=== PATIENT | female | born 2000 | race Caucasian/White ===

== ENCOUNTER 2021-06-08 14:40 | Emergency (ER) | payer BC ==
[~2021-06-08] VITALS: Ht 160 cm; Wt 68.2 kg
[2021-06-08] MEDS ORDERED: ZOFRAN ODT4 MG PO (16:47)
[2021-06-08 16:56] VITALS: BP 109/65; PULSE 91; TEMP 98.5
== END 2021-06-08 16:56 | disposition home or self-care (01) ==
LOC: COL.ER 14:40
DX: U07.1 COVID-19 (principal)
CPT/HCPCS: J2405; J7030

== ENCOUNTER 2021-06-25 11:01 | Emergency (ER) | payer OTHER ==
[~2021-06-25] VITALS: Ht 160 cm; Wt 68.2 kg
[~2021-06-25 11:01] MED LIST: ZOFRAN ODT4 MG PO
[2021-06-25 11:28] VITALS: BP 122/58; TEMP 98.1
[2021-06-25 12:48] VITALS: PULSE 93
== END 2021-06-25 12:48 | disposition home or self-care (01) ==
LOC: COL.ER 11:01
DX: S61.217A Laceration without foreign body of left little finger without damage to nail, initial encounter (principal); Z91.040 Latex allergy status; Y92.59 Other trade areas as the place of occurrence of the external cause; Y99.0 Civilian activity done for income or pay; W26.0XXA Contact with knife, initial encounter

== ENCOUNTER 2021-11-11 20:22 | Emergency (ER) | payer SELFPAY ==
[~2021-11-11] VITALS: Ht 160 cm; Wt 68.2 kg
[2021-11-11 20:25] VITALS: TEMP 98.3
[2021-11-11 22:07] VITALS: BP 113/71; PULSE 69
== END 2021-11-11 22:07 | disposition home or self-care (01) ==
LOC: COL.ER 20:22
DX: T78.40XA Allergy, unspecified, initial encounter (principal); Z91.040 Latex allergy status
CPT/HCPCS: J7512

== ENCOUNTER 2021-12-27 23:47 | Emergency (ER) | payer SELFPAY ==
[~2021-12-27] VITALS: Ht 157.5 cm; Wt 68.2 kg
[2021-12-27 23:51] VITALS: TEMP 98.1
[2021-12-28 00:52] LABS: BASO # 0.1 K/mm3 (0.0-0.2); BASO % 0.9 % (0.0-2.0); EOS # 1.3 K/mm3 (0.0-0.7); GRAN # 3.3 K/mm3 (1.4-6.5); GRAN % 43.8 % (42.2-75.2); HEMATOCRIT 39.5 % (35.0-45.0); HEMOGLOBIN 13.3 g/dl (12.0-15.0); LYMPH # 1.9 K/mm3 (1.2-3.4); LYMPH % 25.9 % (20.0-51.0); MEAN CELL VOLUME 87 fl (80.0-95.0); MEAN CORPUSCULAR HEMOGLOBIN 29 pg (26-32); MEAN CORPUSCULAR HGB CONC 34 g/dl (33.0-37.0); MEAN PLATELET VOLUME 11.8 fl (7.4-10.4); MONO # 0.9 K/mm3 (0.1-0.6); MONO % 12.1 % (1.7-9.3); PLATELET COUNT 286 K/mm3 (130-400); RED BLOOD COUNT 4.52 M/mm3 (4.10-5.30); REDCELL DISTRIBUTION WIDTH-CV 13.2 % (11.5-14.5)
[2021-12-28 01:13] LABS: ALBUMIN 3.9 gm/dL (3.5-5.0); BILIRUBIN,TOTAL 0.3 mg/dL (0.2-1.2); CALCIUM 8.9 mg/dL (8.4-10.2); CREATININE, serum 0.7 mg/dL (0.57-1.11); POTASSIUM 3.9 mmol/L (3.5-4.5); TOTAL PROTEIN 7.8 gm/dL (6.2-8.1)
[2021-12-28] MEDS ORDERED: PROAIR HFA0.09 MG/AC IH (01:48)
[2021-12-28] MEDS ORDERED: PREDNISONE20 MG PO (01:48)
[2021-12-28] MEDS ORDERED: NORCO 325 MG-51 TAB PO (01:49)
[2021-12-28 01:58] VITALS: BP 110/73; PULSE 97
== END 2021-12-28 01:58 | disposition home or self-care (01) ==
LOC: COL.ER 23:47
PROVIDERS: Personal Emergency Response Attendant
DX: J20.9 Acute bronchitis, unspecified (principal); M54.9 Dorsalgia, unspecified; Z86.16 Personal history of COVID-19; Z91.040 Latex allergy status
CPT/HCPCS: J2270; J2405; J2930; J7030

== ENCOUNTER → 2022-04-06 | Outpatient (CLI) | payer OTHER ==
[~2022-04-06] MED LIST changes: +NORCO 325 MG-51 TAB PO; +PREDNISONE20 MG PO; +PROAIR HFA0.09 MG/AC IH
== END ==
LOC: COL.PUL 07:34
DX: R06.2 Wheezing (principal); R06.02 Shortness of breath

== ENCOUNTER 2022-07-26 10:58 | Emergency (ER) | payer OTHER ==
[~2022-07-26] VITALS: Ht 157.5 cm; Wt 70.5 kg
[2022-07-26 12:22] VITALS: TEMP 99.1
[2022-07-26] MEDS ORDERED: PREDNISONE50 MG PO (12:45)
[2022-07-26 12:55] VITALS: BP 109/72; PULSE 120
== END 2022-07-26 12:55 | disposition home or self-care (01) ==
LOC: COL.ER 10:58
DX: B34.9 Viral infection, unspecified (principal); J45.909 Unspecified asthma, uncomplicated; Z91.040 Latex allergy status; Z20.822 Contact with and (suspected) exposure to COVID-19; Z28.310 Unvaccinated for COVID-19
CPT/HCPCS: J7512